=== PATIENT | male | born 1995 ===

== ENCOUNTER 2019-09-07 16:37 | Emergency (ER) | payer SELFPAY | END 2019-09-07 18:00 | disposition home or self-care (01) | LOC: ERS 16:37 | DX: S39.012A Strain of muscle, fascia and tendon of lower back, initial encounter (principal); F32.9 Major depressive disorder, single episode, unspecified; F17.210 Nicotine dependence, cigarettes, uncomplicated; X58.XXXA Exposure to other specified factors, initial encounter; Y99.0 Civilian activity done for income or pay | CPT/HCPCS: 99283 ==